=== PATIENT | female | born 1975 | race Caucasian/White ===

== ENCOUNTER 2017-03-03 09:20 | Emergency (ER) | payer MEDICAID ==
[~2017-03-03] VITALS: Ht 165.1 cm; Wt 84.1 kg
[2017-03-03 09:26] VITALS: BP 112/69
--- NOTE | 2017-03-03 09:34 | NUR ---
PT AMBULATED TO BED6.
--- NOTE | 2017-03-03 09:35 | NUR ---
41/F BIB SELF C/O RIGHT FLANK PAIN WITH TENDERNESS X 3 DAYS & DYSURIA, NAUSEA, BODYACHES.VISITED PMD 02/28/2017 DX UTI, RX MACROBID. SKIN IS PINK/WARM/DRY; AAOX4 WITH EVEN AND STEADY GAIT; LUNGS CLEAR BL; HR EVEN AND REGULAR; PT DENIES ANY FEVER, CP, SOB, OR COUGH AT THIS TIME; PATIENT STATES PAIN OF 8/10 AT THIS TIME; VSS; PATIENT POSITIONED FOR COMFORT; HOB ELEVATED; BEDRAILS UP X2; BED DOWN. ER MD MADE AWARE OF PT STATUS.
[2017-03-03 09:44] LABS: BILIRUBIN,URINE NEGATIVE (NEGATIVE); BLOOD, URINE 1+ (NEGATIVE); LEUKOCYTE ESTERASE ,URINE 3+ (NEGATIVE); NITRITE, URINE NEGATIVE (NEGATIVE); PROTEIN,URINE TRACE (NEGATIVE); UGLUCOSE NEGATIVE (NEGATIVE); UROBILINOGEN,URINE 0.2 EU/dL (0.2 - 1)
--- NOTE | 2017-03-03 09:44 | NUR ---
ER MD DR HUERTA EVALUATING PT AT BEDSIDE.
[2017-03-03] MEDS ORDERED: NACL 0.9% 1,000 ML IV ONE (09:50)
[2017-03-03] MEDS ORDERED: KETOROLAC 30 MG/ML VIAL IVP ONE (09:50)
--- NOTE | 2017-03-03 09:50 | NUR ---
LAB AT BEDSIDE.
--- NOTE | 2017-03-03 10:00 | NUR ---
INSERTED IV CATH NO 20G RAC; PT TOLERATED PROCEDURE WELL. IV PATENT/INTACT. Addendum: 03/03/17 at 1007 by [email or web address] IVF & MED GIVEN ORDER. PT STS R FLANK & BACK PAIN 03/24.
[2017-03-03 10:09] LABS: BASOPHILS # (AUTO) 0.1 K/uL (0.00-0.22); BASOPHILS % (AUTO) 0.8 % (0.0-2.0); EOSINOPHILS # (AUTO) 0.1 K/uL (0-0.4); EOSINOPHILS % (AUTO) 1.2 % (0.0-4.0); HEMATOCRIT 36.5 % (36-48); HEMOGLOBIN 11.7 g/dL (12.0-16.0); MEAN CORPUSCULAR HEMOGLOBIN 23 pg (27-31); MEAN CORPUSCULAR HGB CONC 32 g/dL (33-37); MEAN CORPUSCULAR VOLUME 72 fL (80-94); MONOCYTES # (AUTO) 0.4 K/uL (0.8-1.0); PLATELET COUNT (AUTO) 280 K/uL (140-450); RED BLOOD CELL COUNT(AUTO) 5.05 MIL/uL (4.20-5.40); RED CELL DISTRIBUTION WIDTH 15.8 % (11.6-13.7); WHITE BLOOD COUNT (AUTO) 7.6 K/uL (4.8-10.8)
[2017-03-03 10:24] LABS: ANION GAP 8.6 (8-16); CALCIUM 8.2 mg/dL (8.5-10.1); CARBON DIOXIDE 27.3 mmol/L (21-32); CREATININE 0.7 mg/dL (0.6-1.3); POTASSIUM 3.9 mmol/L (3.5-5.1)
[2017-03-03 10:29] LABS: APPEARANCE,URINE HAZY (CLEAR); COLOR,URINE YELLOW (YELLOW)
[2017-03-03 10:36] LABS: BACTERIA,URINE 1+ /HPF (None Seen); MUCUS,URINE 2+ /LPF (None Seen); RBC,URINE 0-5 (RARE) /HPF (0-5); SQUAMOUS EPITHELIAL CELL,UR 0-3 (FEW) /LPF (0-3 (FEW))
[2017-03-03 10:57] LABS: ALBUMIN 3.5 g/dL (3.4-5.0); TOTAL BILIRUBIN 0.5 mg/dL (0.0-1.0); TOTAL PROTEIN, SERUM 7.3 g/dL (6.4-8.2)
--- NOTE | 2017-03-03 11:01 | NUR ---
IVETH HUERTA REEVALUATING PT AT BEDSIDE. Addendum: 03/03/17 at 1103 by [email or web address] PT STS PAIN 10/22
--- NOTE | 2017-03-03 11:10 | NUR ---
IV removed, catheter intact and site benign. Applied folded 4x4 gauze and tape to stop bleeding.
[2017-03-03 11:17] VITALS: BP 117/74
--- NOTE | 2017-03-03 11:17 | NUR ---
Patient discharged with v/s stable. Written and verbal after care instructions given and explained. Patient alert, oriented and verbalized understanding of instructions. Ambulatory with steady gait. All questions addressed prior to discharge. ID band removed. Patient advised to follow up with PMD. Rx of CIPROFLOXACIN given. Patient educated on indication of medication including possible reaction and side effects. Opportunity to ask questions provided and answered.
== END 2017-03-03 11:17 | disposition home or self-care (01) ==
LOC: MED 09:20
DX: N39.0 Urinary tract infection, site not specified (principal)
CPT/HCPCS: 36415; 80053; 81001; 81025; 83605; 83690; 84484; 85025; 87040; 87086; 96361; 96374; 99284; J1885; J7030